=== PATIENT | female | born 1980 | race Two or more races ===

== ENCOUNTER 2024-05-04 18:04 | Emergency (ER) | payer MEDICAID, SELFPAY ==
[2024-05-04 18:27] VITALS: BP 135/83; PULSE 74; RESP 19; TEMP 36.8; O2SAT 97; BMI 54.5
--- NOTE | 2024-05-04 18:51 | EDRME_ITS ---
Rapid Medical Screening Exam E Arrival date/time: 05/04/24 18:04 Chief Complaint: Flu Like Symptoms Time Seen by Provider: 05/04/24 18:06 Vital signs: Vital Signs Temperature 98.3 F 05/04/24 18:27 Pulse Rate 74 05/04/24 18:27 Respiratory Rate 19 05/04/24 18:27 Blood Pressure 135/83 H 05/04/24 18:27 Pulse Oximetry (%) 97 05/04/24 18:27 Oxygen Delivery Method Room Air 05/04/24 18:27 [facility] Narrative: N/V/D for the past 3 days, unable to keep anything down. Diagnosed with flu 8 days ago, fever resolved.
[2024-05-04 19:26] LABS: Basophils % (Auto) 0 % (0-2.5); Eosinophils % (Auto) 0 % (0-10); Hematocrit 27.4 % (36.0-46.0); Immature Granulocytes % (Auto) 0 % (0-0); Immature Granulocytes Auto 0.01 Thou/mm3 (0.00-0.00); Lymphocytes # (Auto) 1.3 Thou/mm3 (1.0-4.8); Lymphocytes % (Auto) 34 % (10-50); Mean Corpuscular HGB Conc 28.1 g/dl (31.0-37.0); Mean Corpuscular Hemoglobin 18.6 pg (25.0-35.0); Mean Corpuscular Volume 66 fL (80-100); Monocytes # (Auto) 0.3 Thou/mm3 (0.0-0.8); Monocytes % (Auto) 8 % (0-12); Neutrophils # (Auto) 2.3 Thou/mm3 (1.8-7.7); Neutrophils % (Auto) 58 % (37-80); Nucleated Red Blood Cell % 0 /100 WBC (0); Platelet Count 178 Thou/mm3 (140-440); RDW Standard Deviation 46.5 fL (36.4-46.3); Red Blood Count 4.15 Miln/mm3 (4.00-5.20); White Blood Count 3.9 Thou/mm3 (3.6-11.0)
[2024-05-04 19:29] LABS: Hemoglobin 7.7 g/dL (12.0-16.0)
[2024-05-04 19:39] LABS: Alanine Aminotransferase 51 U/L (10-49); Albumin, Serum 4.1 gm/dL (3.5-5.0); Albumin/Globulin Ratio 1.3 (1.2-2.2); Alkaline Phosphatase 82 U/L (46-116); Anion Gap 8 (7-16); Aspartate Amino Transferase 87 U/L (0-34); BUN/Creatinine Ratio 16 Ratio (12-20); Bilirubin,Total 0.9 mg/dL (0.3-1.2); Blood Urea Nitrogen 8 mg/dL (9-23); Calcium 9.2 mg/dL (8.3-10.6); Calcium (Corrected) 9.2 mg/dL (8.5-10.1); Carbon Dioxide 24.6 mMol/L (20.0-31.0); Chloride 105 mMol/L (98-107); Creatinine (Component) 0.5 mg/dL (0.6-1.3); Globulin 3.2 gm/dL (2.3-3.5); Glucose 117 mg/dL (74-106); Lipase 41 U/L (12-53); Osmolality,Calculated 274 (275-295); Potassium 3.7 mMol/L (3.4-5.1); Sodium 138 mMol/L (136-145); Total Protein 7.3 gm/dL (5.7-8.2); eGFR > 60 See Note
[2024-05-04] MEDS: ONDANSETRON INJ 2 MG/ML INJ 2 ML 4 MG IV (19:59)
[2024-05-04] MEDS: SODIUM CHLORIDE 0.9% 1000 ML 1,000 ML 999 ML IV ×2 (19:59→22:46)
[2024-05-04 22:00] LABS: Collection Type, Urine Clean Catch; RBC,Urine 0 /hpf (0-3); WBC,Urine 0 /hpf (0-5)
[2024-05-04 22:08] LABS: Bilirubin,Urine Negative (Negative); Blood,Urine Negative (Negative); Clarity,Urine Clear (Clear/Hazy); Color,Urine Yellow (Lt Yel-Yel); Glucose, Urine Negative (Negative); Ketones,Urine 3+ (Negative); Leukocyte Esterase,Urine Negative (Negative); Nitrite,Urine Negative (Negative); PH,Urine 7.5 (5.0-7.0); Protein,Urine Negative (Neg - Trace); Specific Gravity,Urine 1.018 (1.001-1.035); Squamous Epithelial Cell,Urine 3 /hpf (0-5)
--- NOTE | 2024-05-04 22:29 | EDNOTE_ITS ---
Upper Respiratory Inf. RME/HPI General Chief Complaint: Flu Like Symptoms Stated Complaint: h/a, n/v/d can't keep anything down Time Seen by Provider: 05/04/24 18:06 Arrival date/time: 05/04/24 18:04 RME / HPI RME / HPI Narrative: 43-year-old female patient came in for evaluation regarding nausea and vomiting and diarrhea. This been ongoing for the last 3 days, cannot keep anything down according to her. Denies any fever. Was diagnosed influenza last week. Patient was seen by PCP and was given Tylenol Motrin. Patient is denying any abdominal pain denies any cough denies any other complaints no medications taken prior to ER visit Related Data Previous Rx's ?Medication ?Instructions ?Recorded famotidine 40 mg tablet (Pepcid) 40 mg PO BID #14 tabs 05/04/24 metoclopramide HCl 10 mg tablet 10 mg PO Q6H PRN nause a and 05/04/24 (Reglan) vomiting #20 tabs Allergies Allergy/AdvReac Type Severity Reaction Status Date / Time No Known Allergies Allergy Verified 05/04/24 18:07 Review of Systems Review of Systems Narrative Review of Systems: Review of system reviewed and within normal limits except mentioned in HPI ED Exam Narrative Physical exam: VITAL SIGNS: Reviewed. GENERAL APPEARANCE: Alert and interactive, follows commands, no acute distress, HEAD AND FACE: Non-traumatic. ENT: PERRL, pink conjunctivitis, eyelid no trauma, Mucous membrane moist. NECK: Supple, nontender, no nuchal rigidity. CHEST: No tenderness, no crepitus, no paradoxical movement, no retractions. LUNGS: Clear, well ventilated, symmetric, no rales, no wheezing, no ronchi, no stridor, good breath sounds bilaterally. HEART: Regular rate, regular rhythm, no murmur, no gallops. ABDOMEN: Soft, positive bowel sounds, nondistended, no guarding, nontender, no rebound, no masses, RECTAL: Deferred. GENITAL: Deferred. NEUROLOGICAL: Gross motor function intact sensory function intact, Appropriate for age. MUSCULOSKELETAL: low back nontender, full range of motion. EXTREMITIES: Nontender, full range of motion. SKIN: Color pink, dry, no rash, no lacerations, no abrasions, no contusions. LYMPHATICS: Deferred. Course Quality Measures none Orders Category Date Time Status Bedside COVID-19 Antigen Test NOW Care 05/04/24 21:03 Active Bedside Influenza A&B Antigen Test NOW Care 05/04/24 21:03 Active CBC Stat Lab 05/04/24 19:15 Completed CMP [Comprehensive Metabolic Panel] Stat Lab 05/04/24 19:15 Completed HCG Qualitative,Urine Stat Lab 05/04/24 21:55 Completed Lipase Stat Lab 05/04/24 19:15 Completed UA [Urinalysis] Stat Lab 05/04/24 21:55 Completed Famotidine [Pepcid] Med 05/04/24 22:28 Discontinued 40 mg PO X1 ONE Metoclopramide [Reglan] Med 05/04/24 22:28 Discontinued 10 mg PO X1 ONE Ondansetron Inj [Zofran Inj] Med 05/04/24 18:50 Discontinued 4 mg IV X1 ONE Sodium Chloride 0.9% 1000 ml [Ns] 1,000 ml Med 05/04/24 18:51 Discontinued IV 999 mls/hr Sodium Chloride 0.9% 1000 ml [Ns] 1,000 ml Med 05/04/24 22:29 Active IV 999 mls/hr Vital Signs Vital signs: Vital Signs Temperature 98.3 F 05/04/24 18:27 Pulse Rate 74 05/04/24 18:27 Respiratory Rate 19 05/04/24 18:27 Blood Pressure 135/83 H 05/04/24 18:27 Pulse Oximetry (%) 97 05/04/24 18:27 Oxygen Delivery Method Room Air 05/04/24 18:27 Upper Respiratory Infection MDM Narrative MDM Narrative:: 43-year-old female patient came in for evaluation regarding nausea and vomiting and diarrhea. This been ongoing for the last 3 days, cannot keep anything down according to her. Denies any fever. Was diagnosed influenza last week. Patient was seen by PCP and was given Tylenol Motrin. Patient is denying any abdominal pain denies any cough denies any other complaints no medications taken prior to ER visit Patient reported workup today all came back normal. Except for anemia Patient received 2 L of IV fluids, Reglan and Zofran Pepcid with significant improvement of symptoms patient is tolerating p.o. fluids. Patient appears nontoxic and hemodynamically stable. Patient discharged home and instructed to follow-up with primary care provider in 24 to 48 hours. Instructed to return to the emergency department immediately if worsening of symptoms Patient data External records reviewed:: None Clinical information provided by:: patient and family Social determinants that could affect healthcare access:: none Patient has the following chronic illnesses:: History of chronic anemia How is presenting disease/condition affected by chronic disease/condition?: uneffected by Evaluation data The following diagnostics were reviewed and interpreted by me:: lab results Lab and/or radiology exams considered but not ordered:: None Interpretation Summary: See results in MDM Medications / Prescriptions Medications or Prescriptions considered but not ordered:: None Medication administrations:: Medication Administration History Sodium Chloride (Ns) 1,000 mls @ 999 mls/hr IV .Q1H1M ONE Stop: 05/04/24 23:29 Last Admin: 05/04/24 22:46 Dose: 999 mls/hr Documented By: SOUMYA Discontinued Medications Famotidine (Famotidine 20 Mg Tablet) 40 mg PO X1 ONE Stop: 05/04/24 22:29 Last Admin: 05/04/24 22:43 Dose: 40 mg Documented By: SOUMYA Sodium Chloride (Ns) 1,000 mls @ 999 mls/hr IV .Q1H1M ONE Stop: 05/04/24 19:51 Last Infusion: 05/04/24 21:30 Dose: Infused Documented By: Admin: 05/04/24 19:59 Dose: 999 mls/hr Documented By: RONNIE Metoclopramide HCl (Metoclopramide 5 Mg Tablet) 10 mg PO X1 ONE Stop: 05/04/24 22:29 Last Admin: 05/04/24 22:43 Dose: 10 mg Documented By: SOUMYA Ondansetron HCl (Ondansetron Inj 2 Mg/Ml Inj 2 Ml) 4 mg IV X1 ONE; Protocol Stop: 05/04/24 18:51 Last Admin: 05/04/24 19:59 Dose: 4 mg Documented By: RONNIE IV fluids x 2 L Zofran Reglan and Pepcid Consultations Consultation(s) initiated? (list below): No Diagnosis Upper Respiratory Differential Diagnosis: upper respiratory infection and other (Nausea vomiting, dehydration) Most likely diagnosis given after review of the tests above:: Nausea vomiting, dehydration Admission Indicated Admission indicated?: not indicated Admission Request Was there a request for admission?: No Disposition Plan Disposition Plan: Discharge Discharge Attestation Discharge Attestation: The patient and all family members were given an opportunity to ask questions and understood the discharge instructions. Discharge instructions specifically effects, indications for sooner follow up or return to the emergency department, and the expected course of current diagnosis. Patient condition: Stable Discharge Plan Plan Patient Disposition: HOME (Self Care) Disposition Comment: stable Prescriptions/Referrals Prescriptions/Med Rec: New metoclopramide HCl [Reglan] 10 mg tablet 10 mg PO Q6H PRN (Reason: nausea and vomiting) Qty: 20 0RF famotidine [Pepcid] 40 mg tablet 40 mg PO BID Qty: 14 0RF Referrals: Sander Pedro MD [Primary Care Provider] - In 1 week Problem List Clinical Impression: Dehydration, Nausea & vomiting Patient/Caregiver Discharge Instructions Discharge Activity: activity as tolerated Education Materials: ED Vomiting (Adult) Additional Instructions: Thank you for the opportunity for serving you today. You are stable for discharged . You are advised to: Follow-up with your PCP in 1 to 2 days Return to ED for worsening of symptoms Increase oral fluids Take medication as prescribed Print Language: Indonesian Stand Alone Forms: Steph Award Info., Patient Portal Info Letter KAILYN/AASHISH Supervising Physician KAILYN/AASHISH Supervising Physician: Md Reena
[2024-05-04 22:38] LABS: HCG Qualitative,Urine Negative
[2024-05-04] MEDS: FAMOTIDINE 20 MG TABLET 40 MG PO (22:43)
[2024-05-04] MEDS: METOCLOPRAMIDE 5 MG TABLET 10 MG PO (22:43)
[2024-05-05 05:52] LABS: Path Review Blood Smear Sent to Pathologist
== END 2024-05-05 00:02 | disposition home or self-care (01) ==
PROVIDERS: Physician Assistant; Emergency Provider Emergency Medicine; PCP Family Medicine
DX: E86.0 Dehydration (principal); R11.2 Nausea with vomiting, unspecified
CPT/HCPCS: 36415; 80053; 81001; 81025; 83690; 85025; 96361; 96374; 99284; J2405; J7030; A9270